=== PATIENT | female | born 1995 | race Caucasian/White ===

== ENCOUNTER 2016-06-10 10:45 | Emergency (ER) | payer OTHER ==
--- NOTE | 2016-06-10 10:59 | EDPHY ---
H & P Time Seen by Provider: 06/10/16 10:57 HPI/ROS: CHIEF COMPLAINT: Nausea, vomiting, diarrhea HISTORY OF PRESENT ILLNESS: The patient presents to the ED with a 1 day history of nausea, vomiting and diarrhea. The patient does report heavy alcohol consumption last night. This is out of the ordinary for the patient. The patient denies prior history of pancreatitis. She has no history of abdominal surgery. The patient denies melena. She has no significant past medical history. She complains of mild to moderate epigastric pain. She complaints of active nausea and vomiting. REVIEW OF SYSTEMS: A comprehensive 10 point review of systems is otherwise negative aside from elements mentioned in the history of present illness. Source: Patient Exam Limitations: No limitations - Medical/Surgical History PMH: Past medical history: Noncontributory - Family History Significant Family History: No pertinent family hx - Social History Alcohol Use: Occasionally - Physical Exam Exam: General Appearance: Alert, uncomfortable, retching Eyes: Pupils equal and round no pallor or injection ENT, Mouth: Mucous membranes moist Respiratory: There are no retractions, lungs are clear to auscultation Cardiovascular: Regular rate and rhythm Gastrointestinal: Tenderness to palpation in the epigastrium, no peritoneal signs Neurological: A&O, normal motor function, normal sensory exam, normal cranial nerves Skin: Warm and dry, no rashes Musculoskeletal: Neck is supple nontender Extremities: symmetrical, full range of motion Constitutional: Initial Vital Signs Temperature (C) 36.2 C 06/10/16 11:03 Heart Rate 70 06/10/16 11:03 Respiratory Rate 20 06/10/16 11:03 Blood Pressure 130/87 H 06/10/16 11:03 O2 Sat (%) 98 06/10/16 11:03 O2 Delivery Mode Room Air Allergies/Adverse Reactions: No Known Allergies Allergy (Unverified 06/10/16 11:02) Home Medications: Medication Instructions Recorded Hydroxyzine HCl 06/10/16 Ondansetron Odt [Zofran Odt] 4 mg PO Q4PRN PRN #20 tab 06/10/16 Medical Decision Making ED Course/Re-evaluation: The patient had an IV established. She received a L of normal saline. She received 4 mg of IV Zofran. I re-evaluated the patient at 11:30 a.m.. She is feeling much better. Her vomiting has resolved. Her abdominal examination is benign. She presents to the ED with vomiting likely secondary to a mild alcoholic gastritis. There is no evidence of an upper or lower GI bleed. She has no evidence of an acute abdomen. She was noted to have leukocytosis likely secondary to her vomiting as her clinical examination does not suggest acute intra-abdominal pathology. The patient's laboratory studies are within normal limits. I re-evaluated the patient at noon and she is feeling much better. She will be discharged home with a prescription for Zofran. Differential Diagnosis: Differential diagnosis considered includes gastritis, pancreatitis, hepatitis, dehydration - Data Points Laboratory Results: Laboratory Results 06/10/16 11:15 06/10/16 11:15 06/10/16 11:15 WBC 16.13 H 10^3/uL (3.80-9.50) RBC 5.21 10^6/uL (4.18-5.33) Hgb 16.4 H g/dL (12.6-16.3) Hct 47.1 H % (38.0-47.0) MCV 90.4 fL (81.5-99.8) MCH 31.5 pg (27.9-34.1) MCHC 34.8 g/dL (32.4-36.7) RDW 12.9 % (11.5-15.2) Plt Count 303 10^3/uL (150-400) MPV 9.5 fL (8.7-11.7) Neut % (Auto) 87.5 H % (39.3-74.2) Lymph % (Auto) 8.1 L % (15.0-45.0) [place] % (Auto) 2.8 L % (4.5-13.0) Eos % (Auto) 0.6 % (0.6-7.6) Baso % (Auto) 0.4 % (0.3-1.7) Nucleat RBC Rel Count 0.0 % (0.0-0.2) Absolute Neuts (auto) 14.13 H 10^3/uL (1.70-6.50) Absolute Lymphs (auto) 1.31 10^3/uL (1.00-3.00) Absolute Monos (auto) 0.45 10^3/uL (0.30-0.80) Absolute Eos (auto) 0.09 10^3/uL (0.03-0.40) Absolute Basos (auto) 0.06 10^3/uL (0.02-0.10) Absolute Nucleated RBC 0.00 10^3/uL (0-0.01) Immature Gran % 0.6 % (0.0-1.1) Immature Gran # 0.09 10^3/uL (0.00-0.10) Sodium 146 H mEq/L (134-144) Potassium 4.1 mEq/L (3.5-5.2) Chloride 104 mEq/L (97-110) Carbon Dioxide 23 mEq/l (22-31) Anion Gap 19 mEq/L (8-16) BUN 15 mg/dL (7-23) Creatinine 0.7 mg/dL (0.6-1.0) Estimated GFR > 60 Glucose 100 mg/dL (70-100) Calcium 9.3 mg/dL (8.5-10.4) Total Bilirubin 0.7 mg/dL (0.1-1.4) Conjugated Bilirubin 0.2 mg/dL (0.0-0.5) Unconjugated Bilirubin 0.5 mg/dL (0.0-1.1) AST 27 IU/L (14-46) ALT 33 IU/L (9-52) Alkaline Phosphatase 108 IU/L (38-126) Total Protein 8.8 H g/dL (6.3-8.2) Albumin 4.6 g/dL (3.5-5.0) Lipase 68.0 IU/L (23-300) Beta HCG, Qual NEGATIVE Medications Given: Discontinued Medications Sodium Chloride (Ns) 1,000 mls @ 0 mls/hr IV ONCE ONE PRN Reason: Wide Open Stop: 06/10/16 11:02 Last Admin: 06/10/16 11:10 Dose: 1,000 mls Sodium Chloride (Ns) 1,000 mls @ 0 mls/hr IV ONCE ONE PRN Reason: Wide Open Stop: 06/10/16 11:02 Last Admin: 06/10/16 11:10 Dose: 1,000 mls Ondansetron HCl (Zofran) 4 mg IVP EDNOW ONE Stop: 06/10/16 11:02 Last Admin: 06/10/16 11:10 Dose: 4 mg Departure - Departure Clinical Impression: Acute vomiting Condition: Good Instructions: Acute Nausea and Vomiting (ED) Additional Instructions: 1. Zofran as needed for nausea. 2. Please return to the ED this pain, vomiting, black or bloody stools or other concerns. 3. Please follow-up with your primary care provider as scheduled. Referrals: Bradley Edwards MD [Primary Care Provider] - As per Instructions Prescriptions: Ondansetron Odt [Zofran Odt] 4 mg PO Q4PRN PRN #20 tab PRN Reason: For Nausea
[2016-06-10] MEDS ORDERED: NS 1,000 ML IV ONE ×2 (11:01)
[2016-06-10] MEDS ORDERED: ONDANSETRON 4 MG/2 ML VIAL IVP ONE ×2 (11:01→12:01)
[2016-06-10 11:04] VITALS: PULSE 70
[2016-06-10 11:27] LABS: % IMMATURE GRANULYOCYTES 0.6 % (0.0-1.1); ABSOLUTE IMMATURE GRANULOCYTES 0.09 10^3/uL (0.00-0.10); ADD DIFF? NO; ADD MORPH? NO; ADD SCAN? NO; ATYPICAL LYMPHOCYTE FLAG 0 (0-99); FRAGMENT RBC FLAG 0 (0-99); HEMATOCRIT 47.1 % (38.0-47.0); HEMOGLOBIN 16.4 g/dL (12.6-16.3); LEFT SHIFT FLG 0 (0-99); LIPEMIA HEMOLYSIS FLAG 90 (0-99); MEAN CELL HEMOGLOBIN 31.5 pg (27.9-34.1); MEAN CELL HEMOGLOBIN CONCENTR. 34.8 g/dL (32.4-36.7); MEAN CELL VOLUME 90.4 fL (81.5-99.8); MEAN PLATELET VOLUME 9.5 fL (8.7-11.7); PLATELET CLUMPS FLAG 10 (0-99); PLATELET COUNT 303 10^3/uL (150-400); RED BLOOD CELL COUNT 5.21 10^6/uL (4.18-5.33); RED CELL DISTRIBUTION WIDTH 12.9 % (11.5-15.2)
[2016-06-10 11:43] LABS: ALANINE AMINOTRANSFERASE 33 IU/L (9-52); ALBUMIN 4.6 g/dL (3.5-5.0); ALKALINE PHOSPHATASE 108 IU/L (38-126); ANION GAP 19 mEq/L (8-16); ASPARTATE AMINOTRANSFERASE 27 IU/L (14-46); BILIRUBIN,TOTAL 0.7 mg/dL (0.1-1.4); BILIRUBIN-CONJUGATED 0.2 mg/dL (0.0-0.5); BILIRUBIN-UNCONJUGATED 0.5 mg/dL (0.0-1.1); CALCIUM 9.3 mg/dL (8.5-10.4); CARBON DIOXIDE 23 mEq/l (22-31); CHLORIDE 104 mEq/L (97-110); CREATININE 0.7 mg/dL (0.6-1.0); GLOMERULAR FILTRATION RATE > 60; GLUCOSE 100 mg/dL (70-100); POTASSIUM 4.1 mEq/L (3.5-5.2); SODIUM 146 mEq/L (134-144); TOTAL PROTEIN 8.8 g/dL (6.3-8.2)
[2016-06-10 12:42] VITALS: BP 110/60; RESP 18; TEMP 98.1; O2SAT 97
== END 2016-06-10 12:41 | disposition home or self-care (01) ==
DX: R11.2 Nausea with vomiting, unspecified (principal)
CPT/HCPCS: 96374; J2405